=== PATIENT | female | born 1995 | race Caucasian/White ===

== ENCOUNTER 2018-10-08 01:36 | Emergency (ER) | payer SELFPAY ==
[2018-10-08 01:46] VITALS: BP 108/66; PULSE 72; TEMP 98.2; BMI 24.2
--- NOTE | 2018-10-08 02:04 | PDOC ---
History of Present Illness - General Chief Complaint: Alcohol intoxication Stated Complaint: ETOH Time Seen by Provider: 10/08/18 01:37 History Source: Patient, EMS Exam Limitations: Intoxication - History of Present Illness Initial Comments: 10/08/18 01:37 Sylvia is a 22 yo F who presents to the ER via EMS after being found intoxicated by staff at [facility] Pt admits to drinking multiple drinks today, per her friend, "at least 6" Pt denies pain of any kind now Pt denies any traumatic injury tonight Pt apparently was vomiting upon arrival of EMS to the scene PMH: Depression, Anxiety, ADHD, PTSD PSH: Meds: OCPs, Zoloft, Aderall ALL: Dust, chemicals Social: FH:non contributory ROS: GENERAL/CONSTITUTIONAL: No: fever, chills HEAD, EYES, EARS, NOSE AND THROAT: No: change in vision CARDIOVASCULAR: No: chest pain RESPIRATORY: No: cough, shortness of breath GASTROINTESTINAL: Yes: vomiting No: abdominal pain or diarrhea GENITOURINARY: No: dysuria MUSCULOSKELETAL: No: back pain, neck pain, joint pain SKIN: No: lesions, pallor, rash or easy bruising. NEUROLOGIC: Yes: intoxication No: headache PE: GENERAL: The patient is in no acute distress, pt is resting, intoxicated, follows my commands (moves all extremities, answers all questions, repeatedly requests that her friend stay next to her instead of in the adjacent bed). HEAD: Normal with no signs of trauma. EYES: PERRLA, EOMI ENT: Ears normal, nares patent, oropharynx clear without exudates. NECK: Normal range of motion, supple without midline tenderness LUNGS: Breath sounds equal, clear to auscultation bilaterally. HEART:Regular rate and rhythm, normal S1 and S2 without murmur, rub or gallop. ABDOMEN: Soft, nontender, normoactive bowel sounds. EXTREMITIES: Normal range of motion NEUROLOGICAL: Cranial nerves II through XII grossly intact. (+) intoxicated MUSCULOSKELETAL: Back non-tender to palpation, no CVA tenderness SKIN: Warm, Dry, normal turgor, no rashes or lesions noted. Past History - Past Medical History Allergies/Adverse Reactions: Allergies Allergy/AdvReac Type Severity Reaction Status Date / Time No Known Drug Allergies Allergy Verified 10/08/18 01:37 DUST Allergy Uncoded 04/14/19 01:37 Home Medications: Ambulatory Orders Adderall Xr 15 mg Capsule 10/08/18 Norerenay A-Bryan Estra/Fe Fumarate [ESTROSTEP FE-28 (Nf) -] 1 tab PO DAILY 10/08/18 Zoloft 10/08/18 Medical Decision Making - Medical Decision Making 10/08/18 02:04 (+) intoxication No trauma No drug use Will continuously monitor for sobriety Will return patient [facility] via taxi cab 10/08/18 02:20 She and friend are speaking and laughing 10/08/18 03:25 AMbulatory to the nurses station demanding to leave the ER Pt counselled that she is yet too intoxicated to get home by herself Pt has walked back to her bed in room 1 10/08/18 06:28 Pt awake and alert Ambulatory with a steady gait No complaints of pain clinical impression: intoxication *DC/Admit/Observation/Transfer Diagnosis at time of Disposition: Intoxication - Discharge Dispostion Disposition: HOME Condition at time of disposition: Stable Decision to Admit order: No - Referrals - Patient Instructions Printed Discharge Instructions: Alcohol Use Disorder, DI for Alcohol Poisoning Additional Instructions: Sylvia Thank you for coming in to the ER tonight Please avoid drinking excessive amounts of alcohol Please stay hydrated today with juice and water - Post Discharge Activity
== END 2018-10-08 06:39 | disposition home or self-care (01) ==
LOC: FER 01:36
DX: F10.120 Alcohol abuse with intoxication, uncomplicated (principal)
CPT/HCPCS: 99281-25